=== PATIENT | male | born 1980 | race Caucasian/White ===

== ENCOUNTER 2016-10-06 17:12 | Emergency (ER) | payer OTHER ==
[2016-10-06 18:46] VITALS: BP 115/67; PULSE 74; RESP 16; TEMP 97.5; O2SAT 95
--- NOTE | 2016-10-06 19:08 | DX ---
Left wrist, 4 views. History: Pain after trauma. Findings: Normal mineralization and alignment. No evidence for acute fracture or dislocation. No sign ificant joint narrowing, periarticular erosion, periarticular spurring. Impression: Normal radiograph left wrist.
--- NOTE | 2016-10-06 19:09 | DX ---
Left hand, 3 views. History: Hand pain after trauma. Findings: Normal mineralization and alignment. No evidence for acute fracture or dislocation. No sign ificant joint narrowing, periarticular erosion, periarticular spurring. Impression: Normal radiograph left hand.
[2016-10-06] MEDS ORDERED: IBUPROFEN 200 MG TAB PO ONE (19:38)
--- NOTE | 2016-10-06 19:38 | UCPHY ---
H & P Time Seen by Provider: 10/06/16 19:33 Patient Type: New HPI/ROS: This patient sustained injury to his left wrist when the door to his home abruptly closed with door knob vs dorsum of wrist and hand-left side. This occurred at 4:30 p.m. the day of evaluation with 6/10 pain achy in nature associated with some paresthesias to the dorsal thumb. Pain worsens with movement no other exacerbating or relieving factors are noted. ROS: No other injuries. No weakness. 5 point ROS is o/w negative Past Medical/Surgical History: Healthy Smoking Status: Never smoked Physical Exam: Physical Exam Vital signs are normal. General: No acute distress Eyes: Pupils equal and react to light. Extraocular motions are intact. Lungs: No respiratory distress. Cardiac: Brisk capillary refill is intact throughout. Pulses are 2+ and symmetric in the affected extremity. Skin: No rash or pallor. Extremities: Atraumatic and normal except for left wrist and hand new line left upper extremity: Notable for mild tenderness to the dorsum of the 1st metacarpal. Despite this her retains good range of motion. There is minimal swelling but no ecchymosis. No significant wrist tenderness the there is mild tenderness dorsally. No anatomical snuffbox tenderness. No increase in pain with axial loading of the thumb. Neuro: Alert. No light touch sensory deficits to upper extremities. She maintains 5/5 strength bilateral upper extremities. Initial differential diagnosis: Contusion versus fracture Constitutional: Initial Vital Signs Temperature (C) 36.4 C 10/06/16 18:44 Heart Rate 74 10/06/16 18:44 Respiratory Rate 16 10/06/16 18:44 Blood Pressure 115/67 10/06/16 18:44 O2 Sat (%) 95 10/06/16 18:44 O2 Delivery Mode Room Air Allergies/Adverse Reactions: No Known Allergies Allergy (Unverified 10/06/16 18:51) Home Medications: Medication Instructions Recorded Advair 100/50 (*) 10/06/16 Ventolin Hfa Inhaler 10/06/16 MDM/Departure - MDM Diagnostics: Wrist x-ray: Normal by my interpretation hand x-ray: Normal by my interpretation. Medications Given: Discontinued Medications Ibuprofen (Motrin) 600 mg PO EDNOW ONE Stop: 10/06/16 19:39 Last Admin: 10/06/16 19:50 Dose: 600 mg - Depart Disposition: Home, Routine, Self-Care Clinical Impression: Thumb contusion Qualifiers: Encounter type: initial encounter Damage to nail status: with damage Laterality : left Qualifier Code: (S60.112A) Contusion of left thumb with damage to nail, initial encounter Condition: Good Instructions: Contusion in Adults (ED) Additional Instructions: Diagnosis: Thumb contusion Plan: Thumb spica splint for comfort when your active. Ice 20 minutes at a time few times a day for the next few days Ibuprofen-600 mg for 6 hours as needed for pain and swelling Symptoms should improve significantly in the next 5-10 days. Referrals: NONE *PRIMARY CARE P,. [Primary Care Provider] - As per Instructions - PQRS PQRS Measurement: NA
== END 2016-10-06 19:55 | disposition home or self-care (01) ==
LOC: CED 17:12
DX: S60.112A Contusion of left thumb with damage to nail, initial encounter (principal); M25.532 Pain in left wrist; W23.0XXA Caught, crushed, jammed, or pinched between moving objects, initial encounter
CPT/HCPCS: 73110-PO; 73130-PO; 99203-PO; G0463-PO; L3807